=== PATIENT | female | born 1955 | race Hispanic/Latino ===

== ENCOUNTER 2017-01-17 00:11 | Emergency (ER) | payer OTHER ==
[~2017-01-17] VITALS: Ht 165.1 cm; Wt 68.2 kg
[2017-01-17 00:25] VITALS: BP 141/83; PULSE 80; RESP 18; O2SAT 97
--- NOTE | 2017-01-17 00:43 | ED.REPORT ---
HPI-Eye Problem Date of Service Jan 17, 2017 ED Provider: Carmelo Barrett DO A 61 year old female with no known medical history presents to the ED complaining of left eye discomfort. The pt has had the sensation that something has been in her eye for several months. She suspects that fiberglass may have entered her eye while she was visiting her brother, who works with air conditioning and heating. She has also notices blurred vision in her left eye that has worsened significantly over the last two months. The visual loss has reached the point that the pt is no longer able to drive at night, and rarely drives at all. The pt does not wear contacts. Nursing Notes Stated Complaint: LEFT EYE PAIN Chief Complaint: Eye Nursing Notes Reviewed: Yes Allergies: Coded Allergies: No Known Allergies (Unverified , 01/17/17) General Time Seen by MD: 00:42 Chief Complaint Left eye affected Hx Obtained From: Patient Arrived By: Walk-in Sudden in Onset?: No Onset Occurred: More than a week ago... Symptom Duration: Since onset Recent Healthcare: No recent doctor visit, No recent hospitalization Similar Sx Previous: No Past Medical History Past Medical History none reported Past Surgical History none reported Smoking History Unknown if Ever Smoker Ambulatory Status Independent Review of Systems Constitutional: Denies: Fever Eyes: Reports: Blurred left, Eye pain left ("discomfort"), Visual loss left Ears / Nose / Throat: Reports: Ear drainage bilateral Skin: Denies Rash Complete sys rev & neg: except as marked. Respiratory: Denies: Non-productive cough Cardiovascular: Denies: Chest pain GI: Denies: Abdominal pain Physical Exam Initial Vital Signs Vital Signs (First) Date Time Temp Pulse Resp B/P Pulse Ox O2 Delivery O2 Flow Rate FiO2 01/17/17 00:25 36.1 80 18 141/83 97 Room Air Initial VS: Reviewed Head / Eyes: Atraumatic, Normocephalic, PERRL, EOMI pressure: 12 hazy opacity of left lens decreased visual acuity of left eye able to sense light and count fingers General/Constitutional: Awake, Alert ENT: Atraumatic, Airway patent, Mucous membranes moist Skin: Atraumatic, Color NL, No rash, Warm, Dry Neurologic: Oriented X3, Speech NL, No motor deficits, No sensory deficits Neck: Atraumatic, Supple, Full range of motion Respiratory / Chest: Atraumatic, No respiratory distress Cardiovascular: Heart rate NL Abdomen: Atraumatic Back: Atraumatic, Full range of motion Upper Extremity / MS: Atraumatic, Full range of motion Lower Extremity / Pelvis / MS: Atraumatic, Full range of motion Psychiatric: Affect NL, Mood NL Interpretation & Diagnostics Pulse Oximetry Interpretation Pulse Oximetry Interpretation: 97% on room air Pulse Oximetry: Pulse Ox normal Re-Eval/Medical Decision Med Decision/Clinical Course This looks like cataract formation to me. There is no acute white discoloration to her lens. Her pupils are round and reactive to light. She can sense light and count fingers in all 4 quadrants. Forcing staining was unremarkable. No foreign bodies. Intraocular pressure was 12. I could not visualize her retina very well. I will have her follow-up closely with ophthalmology. I do not think that there is anything I can do to help her. Re-Evaluation/Progress : Time of Eval: 01:41 Patient Status: Condition improved Re-Evaluation/Progress Note: Pt informed of her diagnosis and the plan for discharge with follow up. The pt understands and agrees with the plan. All questions are addressed at this time. Counseled Regarding: Diagnosis, Need for follow-up, When/why to return to ED Discharge & Departure Primary Impression: Cataract Disposition: Home Discharge Condition All VS Reviewed: Yes Condition: Stable Patient Instructions: Cataracts (ED) Additional Instructions: It appears that you have an opacity in your left lens. Do not drive at night. Call Dr. Bell from [facility] in the morning to arrange a follow up appointment. Tell him that you were seen in the emergency department for visual loss that could be due to cataracts. Return to the emergency department if you develop any new or worsening symptoms. Referrals: [facility] Anisha Bell MD Attestation Portions of this note were transcribed by Pilar Nazario. I, Dr. Barrett personally performed the history, physical exam and medical decision-making; I reviewed and confirmed the accuracy of the information in the transcribed note. Signed by: Kim Shepard, 01/17/2017 and 0239. copies to: [facility]; Anisha Bell MD, Todd P DO Jan 17, 2017 00:43 PILAR NAZARIO Jan 17, 2017 01:06
[2017-01-17] MEDS ORDERED: Tetracaine 0.5% 4 mL Ophthalmic Solution LEFT_EYE ONE (00:45)
[2017-01-17] MEDS ORDERED: 0.9% Sodium Chloride Inhalation Solution ONE (00:48)
[2017-01-17] MEDS ORDERED: Fluorescein 0.6 mg Ophthalmic Strip ONE (00:49)
== END 2017-01-17 02:09 | disposition home or self-care (01) ==
LOC: SED 00:22
DX: H26.9 Unspecified cataract (principal)